=== PATIENT | male | born 1995 | race Caucasian/White ===

== ENCOUNTER 2017-07-01 19:06 | Emergency (ER) | payer OTHER ==
--- NOTE | 2017-07-01 20:15 | RAD ---
Indication: LEFT testicular pain. Post RIGHT orchiectomy. Comparison: No relevant prior exams available on the [facility] [place] [facility] for comparison. Technique: Scrotal ultrasound. Report: The RIGHT hemiscrotum is empty. 5.2 x 2.2 x 2.7 cm LEFT testicle is normal in echotexture and demonstrates normal range vascularity on Doppler. Unremarkable 0.8 x 1.0 cm LEFT epididymis head with normal range vascularity. Negative for hydrocele. Mild LEFT varicocele with veins of the pampiniform plexus measuring up to 5 mm maximum dimension on valsalva maneuver. IMPRESSION: 1. Negative for LEFT epididymal orchitis, torsion, or presence of an intratesticular lesion. 2. Mild LEFT varicocele.
[2017-07-01 21:04] VITALS: BP 124/72
--- NOTE | 2017-07-01 23:18 | ED ---
Yolette Arboleda Emily, scribed for Galindo Rogers MD on 07/01/17 at 2051 . GI/ HPI - HPI Summary HPI Summary: This patient is a 21 year old M presenting to [facility] with a chief complaint of L testicular pain that began 2 hours ago. Pain began 15 minutes after pt had sex. 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 The patient rates the pain 4/10 in severity. Symptoms aggravated by nothing. Symptoms alleviated by nothing. Patient reports lightheadedness. - History of Current Complaint Chief Complaint: EDUrogenitalProblems Stated Complaint: POSS TESTICULAR TORTION Hx Obtained From: Patient Onset/Duration: Started Hours Ago, Still Present Timing: Constant, Lasting Hours Severity: Moderate Current Severity: Moderate Pain Intensity: 7 Additional Locations for Males: Testicles - Left - Allergy/Home Medications Allergies/Adverse Reactions: Allergies Allergy/AdvReac Type Severity Reaction Status Date / Time Sulfa Antibiotics Allergy Rash Verified 07/01/17 19:12 Home Medications: Home Medications Atenolol 07/01/17 [History] PMH/Surg Hx/FS Hx/Imm Hx Previously Healthy: No Endocrine/Hematology History: Denies: Hx Diabetes Cardiovascular History: Denies: Hx Hypertension Neurological History: Reports: Other Neuro Impairments/Disorders - vasovagal syncope Infectious Disease History: No Infectious Disease History: Denies: Traveled Outside the [place] in Last 30 Days - Family History Known Family History: Positive: Other - denies any FHx of GI disorders - Social History Alcohol Use: Occasionally Substance Use Type: Reports: None Smoking Status (MU): Never Smoked Tobacco Review of Systems Positive: other - Left testicular pain Neurological: Other - Lightheadedness All Other Systems Reviewed And Are Negative: Yes Physical Exam Triage Information Reviewed: Yes Vital Signs On Initial Exam: Initial Vitals Temp Pulse Resp BP Pulse Ox 98.2 F 64 12 135/92 100 07/01/17 19:08 07/01/17 19:08 07/01/17 19:08 07/01/17 19:08 07/01/17 19:08 Vital Signs Reviewed: Yes Appearance: Positive: Well-Appearing, No Pain Distress Skin: Positive: Warm, Skin Color Reflects Adequate Perfusion, Dry Head/Face: Positive: Normal Head/Face Inspection Eyes: Positive: Normal ENT: Positive: Normal ENT inspection Neck: Positive: Supple, Nontender Respiratory/Lung Sounds: Positive: Clear to Auscultation, Breath Sounds Present Cardiovascular: Positive: RRR Abdomen Description: Positive: Nontender, Soft Bowel Sounds: Positive: Present Male Genital Exam: Positive: other - Decreased cremaster reflex. Mild tenderness in epididymis. Pain somewhat relieved by lifting up the testicle Musculoskeletal: Positive: Normal Neurological: Positive: Normal Psychiatric: Positive: Affect/Mood Appropriate - [place] Coma Scale Coma Scale Total: 15 Diagnostics - Vital Signs Vital Signs Temp Pulse Resp BP Pulse Ox 07/01/17 19:08 98.2 F 64 12 135/92 100 - Laboratory Lab Statement: Any lab studies that have been ordered have been reviewed, and results considered in the medical decision making process. - Additional Comments Diagnostic Additional Comments: Testicular US read by radiologist reveals 1. Negative for LEFT epididymal orchitis, torsion, or presence of an intratesticular lesion. 2. Mild LEFT varicocele. ED physician has reviewed this radiology report and agrees. GIGU Course/Dx - Course Course Of Treatment: Mr. Siddiqui was mildly tender over the epididymitis with a decreased cremaster reflex but his U/S was negative. He could have torsed and detorsed. He is fine now and I referred him to urology. - Diagnoses Provider Diagnoses: Testicular pain, left Discharge - Discharge Plan Condition: Stable Disposition: HOME Patient Education Materials: Testicle Pain (ED) Referrals: [facility] [place] PHYSICIAN REFERRAL [Outside] - 1 Week Additional Instructions: FOLLOW UP WITH UROLOGY WITHIN ONE WEEK. RETURN TO THE EMERGENCY DEPARTMENT FOR CHANGING OR WORSENING SYMPTOMS. The documentation as recorded by the Yolette guaman Emily accurately reflects the service I personally performed and the decisions made by me, Galindo Rogers MD.
== END 2017-07-01 21:04 | disposition home or self-care (01) ==
LOC: ED 19:06
DX: N50.812 Left testicular pain (principal); R42 Dizziness and giddiness
CPT/HCPCS: 76870; 99282